=== PATIENT | male | born 1950 | race Caucasian/White ===

== ENCOUNTER 2016-08-05 12:31 | Observation (INO) | payer OTHER ==
[~2016-08-05 12:31] MED LIST: ADULT LOW DOSE81 MG PO; ALLOPURINOL300 MG PO; AMBIEN5 M1 PO; AZULFIDINE500 M1 PO; BACTRIM DS TABL1 TAB PO; CARVEDILOL3.125 MG PO; COREG12.5 MG PO; COREG25 M1 PO; COREG25 MG PO; COZAAR50 M1 PO; FOLIC ACID1 MG PO; FUROSEMIDE40 MG; GLUCOPHAGE1000 M1 PO; GLUCOPHAGE1000 MG PO; HUMALOG100 U/ML; HYZAAR 50-12.51 EACH PO; IRON1 TAB PO; KEFLEX500 MG PO; LANTUS100 U/ML SC; LANTUS100 U/ML SQ; LASIX20 M1 PO; LASIX40 M1 PO; LASIX40 MG PO; LIPITOR20 MG; LIPITOR20 MG PO; MIRALAX17 G1 PO; NITROSTAT0.4 MG/TAB SL; NORCO 5/325 TAB1 TAB PO; OXYCODONE/APAP PO; PERCOCET 10-321 EACH PO; PERCOCET 5/3251 TAB PO; PLAVIX75 M1 PO; PLAVIX75 MG PO; SPIRONOLACTONE25 M1 PO; STOOL SOFTENER100 M1 PO; SULFASALAZINE500 MG PO; VANCOMYCIN1.25 GM/21 IV; VIAGRA100 M1 PO; VITAMIN B-1100 M3 PO; ZESTRIL20 M2 PO; [UNRECOGNIZED DRUG - REMARK]
[2016-08-05] MEDS ORDERED: ASPIRIN EC81 MG PO (12:38)
[2016-08-05 12:54] LABS: BASO % 0.2 % (0-2); EOS % 2.4 % (0-7); EOSINOPHIL ABSOLUTE COUNT 0.2 tho/cmm (0.0-0.7); HCT-HEMATOCRIT 33.3 % (36.0-53.5); HGB-HEMOGLOBIN 11.7 gm/dl (13.5-17.0); IMMATURE GRANULOCYTES ABSOLUTE 0.03 tho/cmm (0-0.03); IMMATURE GRANULOCYTES PERCENT 0.4 % (0-0.3); LYMPH % 8.5 % (20-45); LYMPH ABSOLUTE COUNT 0.7 tho/cmm (0.8-4.5); MCH (MEAN CORPUSCULAR HGB) 27.6 pg (28.0-32.0); MCHC MEAN CORPUSCULAR HGB CONC 35.1 % (32.0-36.0); MCV (MEAN CELL VOLUME) 78.5 fl (82.0-96.0); MEAN PLATELET VOLUME 9.4 cmc (9.4-12.4); MONO % 13.4 % (0-12); MONOCYTE ABSOLUTE COUNT 1.1 tho/cmm (0.0-1.2); NEUTROPHIL ABSOLUTE COUNT 6.2 tho/cmm (1.6-8.0); NEUTROPHIL-AUTOMATED 6.2 tho/cmm (1.6-8.0); NEUTROPHILS % 75.1 % (40-80); PLATELET COUNT 205 tho/cmm (150-450); RED BLOOD COUNT 4.24 mil/cmm (4.40-5.70); RED CELL DISTRIBUTION WIDTH 13.5 % (12.4-16.4); WHITE BLOOD COUNT 8.2 tho/cmm (4.0-10.0)
[2016-08-05 13:43] LABS: CHLORIDE 89 mmol/l (96-110)
[2016-08-05 13:49] LABS: BLOOD UREA NITROGEN 10 mg/dl (6-24); CALCIUM 7.9 mg/dl (8.5-10.5); CARBON DIOXIDE-VENOUS 23 mmol/L (22-32); CREATININE 0.93 mg/dl (0.60-1.30); GLUCOSE 138 mg/dL (70-110); eGFR VALUE FOR BLACK >90 mL/Min
[2016-08-05 13:55] LABS: ANION GAP 17 mmol/L (0-20); POTASSIUM 3.3 mmol/L (3.7-5.1); SODIUM 126 mmol/L (135-145)
[2016-08-05 16:30] LABS: MAGNESIUM 1.5 mg/dl (1.3-2.6)
[2016-08-06 06:03] LABS: ANION GAP 11 mmol/L (0-20); BLOOD UREA NITROGEN 12 mg/dl (6-24); CALCIUM 8.5 mg/dl (8.5-10.5); CARBON DIOXIDE-VENOUS 28 mmol/L (22-32); CHLORIDE 94 mmol/l (96-110); CREATININE 1.04 mg/dl (0.60-1.30); GLUCOSE 139 mg/dL (70-110); POTASSIUM 3.7 mmol/L (3.7-5.1); SODIUM 129 mmol/L (135-145); eGFR VALUE FOR BLACK 88 mL/Min
[2016-08-06 13:58] LABS: TSH-THYROID STIMULATING HORM. 4.66 uIU/ml (0.40-3.80)
[2016-08-07 05:45] LABS: ANION GAP 11 mmol/L (0-20); BLOOD UREA NITROGEN 10 mg/dl (6-24); CALCIUM 8.4 mg/dl (8.5-10.5); CARBON DIOXIDE-VENOUS 28 mmol/L (22-32); CHLORIDE 96 mmol/l (96-110); CREATININE 0.92 mg/dl (0.60-1.30); GLUCOSE 125 mg/dL (70-110); POTASSIUM 3.4 mmol/L (3.7-5.1); SODIUM 132 mmol/L (135-145); eGFR VALUE FOR BLACK >90 mL/Min
[2016-08-07] MEDS ORDERED: VITAMIN B-1100 M3 PO (13:36)
[2016-08-07] MEDS ORDERED: FOLIC ACID1 M1 PO (13:36)
[2016-08-07] MEDS ORDERED: MULTIPLE VITAM1 EAC3 PO (13:37)
[2016-08-07] MEDS ORDERED: COZAAR50 M1 PO (13:42)
[2016-08-07] MEDS ORDERED: NORVASC5 M2 PO (13:42)
[2016-11-12] MEDS ORDERED: PERCOCET 10-321 EACH PO (11:33)
[2016-11-14] MEDS ORDERED: ASPIRIN325 M3 PO (15:15)
[2016-11-14] MEDS ORDERED: SILVADENE20 G1 TP (15:16)
[2016-11-14] MEDS ORDERED: MAGNESIUM OXID400 M1 PO (15:56)
== END 2016-08-07 14:25 ==
LOC: EDMED 12:31 → EMR2 15:29 → CAR1 16:19
PROVIDERS: Emergency Medicine; Internal Medicine; Internal Medicine Cardiovascular Disease; Physician Assistant; ADMIT Internal Medicine Cardiovascular Disease
DX: I35.8 Other nonrheumatic aortic valve disorders (principal); R55 Syncope and collapse; I25.10 Atherosclerotic heart disease of native coronary artery without angina pectoris; I44.7 Left bundle-branch block, unspecified; I10 Essential (primary) hypertension; E11.9 Type 2 diabetes mellitus without complications; E87.1 Hypo-osmolality and hyponatremia; G47.33 Obstructive sleep apnea (adult) (pediatric); K50.90 Crohn's disease, unspecified, without complications; Z95.1 Presence of aortocoronary bypass graft; Z79.82 Long term (current) use of aspirin; Z79.899 Other long term (current) drug therapy
CPT/HCPCS: A9500; G0378; G0480; J0360; J2785; J7030

== ENCOUNTER 2016-09-23 11:58 | Emergency (ER) | payer OTHER ==
[~2016-09-23 11:58] MED LIST changes: +ASPIRIN EC81 MG PO; +FOLIC ACID1 M1 PO; +MULTIPLE VITAM1 EAC3 PO; +NORVASC5 M2 PO
[2016-09-23 13:15] LABS: ALB/GLOB RATIO 0.8 (0.8-2.0); ALBUMIN 3.1 g/dl (3.5-5.0); ALCOHOL (ETOH) 17 mg/dl (<10); ALKALINE PHOSPHATASE 93 U/L (33-138); ALT/SGPT 18 U/L (12-78); ANION GAP 18 mmol/L (0-20); AST/SGOT 20 U/L (10-40); BILIRUBIN,TOTAL 0.4 mg/dl (0.0-1.5); BLOOD UREA NITROGEN 12 mg/dl (6-24); CALCIUM 8.5 mg/dl (8.5-10.5); CARBON DIOXIDE-VENOUS 26 mmol/L (22-32); CHLORIDE 89 mmol/l (96-110); CREATININE 1.17 mg/dl (0.60-1.30); GLUCOSE 112 mg/dL (70-110); MAGNESIUM 1.3 mg/dl (1.8-2.6); POTASSIUM 3.7 mmol/L (3.7-5.1); SODIUM 129 mmol/L (135-145); eGFR VALUE FOR BLACK 76 mL/Min
[2016-09-23 13:16] LABS: BASO % 0.4 % (0-2); EOS % 2.1 % (0-7); EOSINOPHIL ABSOLUTE COUNT 0.2 tho/cmm (0.0-0.7); HCT-HEMATOCRIT 35.1 % (36.0-53.5); HGB-HEMOGLOBIN 12.2 gm/dl (13.5-17.0); LYMPH % 12.3 % (20-45); MCH (MEAN CORPUSCULAR HGB) 27.4 pg (28.0-32.0); MCHC MEAN CORPUSCULAR HGB CONC 34.8 % (32.0-36.0); MCV (MEAN CELL VOLUME) 78.7 fl (82.0-96.0); MEAN PLATELET VOLUME 9.7 cmc (9.4-12.4); MONO % 12.7 % (0-12); NEUTROPHIL ABSOLUTE COUNT 5.8 tho/cmm (1.6-8.0); NEUTROPHIL-AUTOMATED 5.8 tho/cmm (1.6-8.0); NEUTROPHILS % 72.5 % (40-80); PLATELET COUNT 245 tho/cmm (150-450); RED BLOOD COUNT 4.46 mil/cmm (4.40-5.70); RED CELL DISTRIBUTION WIDTH 14.2 % (12.4-16.4)
[2016-09-23] MEDS ORDERED: NITROGLYCERIN0.4 M2 SL (13:50)
[2016-11-12] MEDS ORDERED: PERCOCET 10-321 EACH PO (11:33)
[2016-11-14] MEDS ORDERED: ASPIRIN325 M3 PO (15:15)
[2016-11-14] MEDS ORDERED: SILVADENE20 G1 TP (15:16)
[2016-11-14] MEDS ORDERED: MAGNESIUM OXID400 M1 PO (15:56)
== END 2016-09-23 14:10 ==
LOC: EDMED 11:58
PROVIDERS: Emergency Medicine
DX: R55 Syncope and collapse (principal); I51.9 Heart disease, unspecified; Z79.82 Long term (current) use of aspirin; Z95.1 Presence of aortocoronary bypass graft; Z95.5 Presence of coronary angioplasty implant and graft
CPT/HCPCS: G0480; J7030